=== PATIENT | female | born 1985 | race American Indian/Alaskan Native ===

== ENCOUNTER 2022-01-26 06:40 | Emergency (ER) | payer SELFPAY ==
--- NOTE | 2022-01-26 07:48 | Emergency Department Report ---
HPI - General Chief Complaint: Overdose Time Seen by Provider: 01/26/22 07:28 - HPI HPI: Room 18 The patient is a 36-year-old female present with chief complaint of altered mental status. Significant other states he attempted to wake the patient up th is morning in bed at 05: 00 but she was unresponsive. EMS was called. EMS administered Narcan 1 mg with some improvement of patient. Patient awakens to state that she has abdominal pain. Patient denies taking any opiates but states she took Ambien last night. Family states the patient complained of body aches last night. ED Past Medical Hx - Past Medical History Previous Medical History?: Yes Hx Hypertension: Yes Hx Kidney Stones: Yes - Surgical History Past Surgical History?: No Additional Surgical History: Ovarian cyst removal - Family History Family history: no significant - Social History Smoking Status: Never Smoker Substance Use Type: None ED Review of Systems ROS: Stated complaint: POSS OD Other details as noted in HPI Constitutional: no symptoms reported Eyes: denies: eye pain ENT: denies: throat pain Respiratory: no symptoms reported Cardiovascular: denies: chest pain Endocrine: no symptoms reported Gastrointestinal: abdominal pain. denies: nausea Genitourinary: denies: dysuria Musculoskeletal: myalgia Neurological: denies: headache Physical Exam - Physical Exam Vital Signs: Vital Signs 01/26/22 06:40 Temperature 97.5 F L Pulse Rate 96 H Respiratory 18 Rate Blood Pressure 142/91 O2 Sat by Pulse 98 Oximetry Physical Exam: GENERAL: The patient is well-developed well-nourished female lying on stretcher only responding to tactile stimuli. [] HEENT: Normocephalic. Atraumatic. Extraocular motions are intact. Patient has moist mucous membranes. Pupils 3 to 2 mm bilaterally NECK: Supple. Trachea midline CHEST/LUNGS: Clear to auscultation. There is no respiratory distress noted. HEART/CARDIOVASCULAR: Regular. There is no tachycardia. There is no gallop rub or murmur. ABDOMEN: Abdomen is soft, nontender. Patient has normal bowel sounds. There is no abdominal distention. SKIN: There is no rash. There is no edema. There is no diaphoresis. NEURO: The patient is lethargic only responding to verbal and tactile stimuli. The patient is not cooperative with neurologic exam. The patient has normal speech MUSCULOSKELETAL: There is no evidence of acute injury. ED Course Vital Signs 01/26/22 06:40 Temperature 97.5 F L Pulse Rate 96 H Respiratory 18 Rate Blood Pressure 142/91 O2 Sat by Pulse 98 Oximetry - Reevaluation(s) Reevaluation #1: 01/26/22 13:20 Patient much more alert at this time. Patient states she only took 1 Ambien but does not recall the dosage. Patient denies any other coingestants. Patient currently denies complaints ED Medical Decision Making - Lab Data Result diagrams: 01/26/22 07:47 01/26/22 07:47 Laboratory Tests 01/26/22 01/26/22 01/26/22 07:47 07:47 07:47 WBC 7.4 RBC 4.29 Hgb 12.6 Hct 38.3 MCV 89 MCH 29 MCHC 33 RDW 14.7 Plt Count 285 Lymph % (Auto) 19.1 [place] % (Auto) 6.2 Eos % (Auto) 1.1 Baso % (Auto) 0.5 Lymph # (Auto) 1.4 [place] # (Auto) 0.5 Eos # (Auto) 0.1 Baso # (Auto) 0.0 Seg Neutrophils % 73.1 H Seg Neutrophils # 5.4 Sodium 139 Potassium 3.9 Chloride 104.7 Carbon Dioxide 26 Anion Gap 12 BUN 10 Creatinine 0.7 Estimated GFR > 60 BUN/Creatinine Ratio 14 Glucose 99 Calcium 8.9 Total Bilirubin < 0.20 AST 28 ALT 21 Alkaline Phosphatase 58 Ammonia 12.0 L Total Creatine Kinase 109 Total Protein 6.5 Albumin 4.1 Albumin/Globulin Ratio 1.7 TSH Free T4 HCG, Qual Urine Color Urine Turbidity Urine pH Ur Specific [place] Urine Protein Urine Glucose (UA) Urine Ketones Urine Blood Urine Nitrite Urine Bilirubin Urine Urobilinogen Ur Leukocyte Esterase Urine WBC (Auto) Urine RBC (Auto) Salicylates Urine Opiates Screen Urine Methadone Screen Acetaminophen Ur Barbiturates Screen Ur Phencyclidine Scrn Ur Amphetamines Screen U Benzodiazepines Scrn Urine Cocaine Screen U Marijuana (THC) Screen Drugs of Abuse Note Plasma/Serum Alcohol 01/26/22 01/26/22 01/26/22 07:47 07:47 07:47 WBC RBC Hgb Hct MCV MCH MCHC RDW Plt Count Lymph % (Auto) [place] % (Auto) Eos % (Auto) Baso % (Auto) Lymph # (Auto) [place] # (Auto) Eos # (Auto) Baso # (Auto) Seg Neutrophils % Seg Neutrophils # Sodium Potassium Chloride Carbon Dioxide Anion Gap BUN Creatinine Estimated GFR BUN/Creatinine Ratio Glucose Calcium Total Bilirubin AST ALT Alkaline Phosphatase Ammonia Total Creatine Kinase Total Protein Albumin Albumin/Globulin Ratio TSH 1.510 Free T4 1.09 HCG, Qual Negative Urine Color Urine Turbidity Urine pH Ur Specific [place] Urine Protein Urine Glucose (UA) Urine Ketones Urine Blood Urine Nitrite Urine Bilirubin Urine Urobilinogen Ur Leukocyte Esterase Urine WBC (Auto) Urine RBC (Auto) Salicylates Urine Opiates Screen Urine Methadone Screen Acetaminophen Ur Barbiturates Screen Ur Phencyclidine Scrn Ur Amphetamines Screen U Benzodiazepines Scrn Urine Cocaine Screen U Marijuana (THC) Screen Drugs of Abuse Note Plasma/Serum Alcohol < 0.01 01/26/22 01/26/22 01/26/22 08:00 08:00 11:14 WBC RBC Hgb Hct MCV MCH MCHC RDW Plt Count Lymph % (Auto) [place] % (Auto) Eos % (Auto) Baso % (Auto) Lymph # (Auto) [place] # (Auto) Eos # (Auto) Baso # (Auto) Seg Neutrophils % Seg Neutrophils # Sodium Potassium Chloride Carbon Dioxide Anion Gap BUN Creatinine Estimated GFR BUN/Creatinine Ratio Glucose Calcium Total Bilirubin AST ALT Alkaline Phosphatase Ammonia Total Creatine Kinase Total Protein Albumin Albumin/Globulin Ratio TSH Free T4 HCG, Qual Urine Color Straw Urine Turbidity Clear Urine pH 6.0 Ur Specific [place] 1.019 Urine Protein <15 mg/dl Urine Glucose (UA) Neg Urine Ketones Neg Urine Blood Neg Urine Nitrite Neg Urine Bilirubin Neg Urine Urobilinogen < 2.0 Ur Leukocyte Esterase Neg Urine WBC (Auto) < 1.0 Urine RBC (Auto) 1.0 Salicylates < 0.3 L Urine Opiates Screen Urine Methadone Screen Acetaminophen 5.0 L Ur Barbiturates Screen Ur Phencyclidine Scrn Ur Amphetamines Screen U Benzodiazepines Scrn Urine Cocaine Screen U Marijuana (THC) Screen Drugs of Abuse Note Plasma/Serum Alcohol 01/26/22 11:14 WBC RBC Hgb Hct MCV MCH MCHC RDW Plt Count Lymph % (Auto) [place] % (Auto) Eos % (Auto) Baso % (Auto) Lymph # (Auto) [place] # (Auto) Eos # (Auto) Baso # (Auto) Seg Neutrophils % Seg Neutrophils # Sodium Potassium Chloride Carbon Dioxide Anion Gap BUN Creatinine Estimated GFR BUN/Creatinine Ratio Glucose Calcium Total Bilirubin AST ALT Alkaline Phosphatase Ammonia Total Creatine Kinase Total Protein Albumin Albumin/Globulin Ratio TSH Free T4 HCG, Qual Urine Color Urine Turbidity Urine pH Ur Specific [place] Urine Protein Urine Glucose (UA) Urine Ketones Urine Blood Urine Nitrite Urine Bilirubin Urine Urobilinogen Ur Leukocyte Esterase Urine WBC (Auto) Urine RBC (Auto) Salicylates Urine Opiates Screen Negative Urine Methadone Screen Negative Acetaminophen Ur Barbiturates Screen Negative Ur Phencyclidine Scrn Negative Ur Amphetamines Screen Negative U Benzodiazepines Scrn Positive Urine Cocaine Screen Negative U Marijuana (THC) Screen Negative Drugs of Abuse Note Disclamer Plasma/Serum Alcohol - Radiology Data Radiology results: report reviewed (CT head, CT abdomen pelvis), image reviewed (CT head, CT abdomen pelvis) [facility] [address] [id number] Cat Scan Report Signed Patient: RASHAD LARSEN MR#: [id number] : 1985 Acct:[id number] Age/Sex: 36 / F ADM Date: 01/26/22 Loc: ED Attending Dr: Ordering Physician: ALBERT DREW MD Date of Service: 01/26/22 Procedure(s): CT abdomen pelvis w con Accession Number(s): [id number] cc: ALBERT DREW MD CT ABDOMEN AND PELVIS WITH CONTRAST HISTORY: Lower abdominal pain. COMPARISON: None. TECHNIQUE: CT images of the abdomen and pelvis were obtained following administration of intravenous contrast. All CT scans at this location are performed using CT dose reduction for ALARA by means of automated exposure control. CONTRAST: 100 ml of intravenous contrast administered. FINDINGS: Lungs/bones: Mild increased interstitial prominence in the lower lungs. Nodula r opacities identified with nodules measuring up to 7 mm Abdomen/pelvis: A few hypodensities are seen in the liver too small to characterize. Spleen, adrenal glands, pancreas and gallbladder appear normal. There is constipation throughout the colon. Evaluation for inflammatory change is limited with only small amount of intra- abdominal fat. Appendix is not well seen. The urinary bladder is distended. Visualized portions of aorta appear normal. Kidneys are unremarkable. No free fluid is identified. Splenule is seen. No acute bone findings are seen. IMPRESSION: 1. Constipation. The appendix is not visualized. No free fluid in the abdomen or pelvis. 2. A few hypodensities are seen within the liver which could represent cyst however too small to characterize. 3. Bladder is distended and 4. Nodular densities in the lower lungs with nodules measuring up to 7 mm. Follow-up for pulmonary nodule with CT chest recommended. Signer Name: Jb Keys MD Signed: 01/26/2022 9:47 AM Workstation Name: [id number] Transcribed By: CW Dictated By: JEREMY KEYS MD Electronically Authenticated By: JEREMY KEYS MD Signed Date/Time: 01/26/22946 DD/ 3 TD/TT: CT HEAD WITHOUT CONTRAST INDICATION / CLINICAL INFORMATION: Altered mental status. TECHNIQUE: All CT scans at this location are performed using CT dose reduction for ALARA by means of automated exposure control. COMPARISON: None available. FINDINGS: No acute intracranial hemorrhage. Ventricles are normal in size without midline shift or mass effect. No extra-axial fluid collection is seen sinuses are clear nice-white matter differentiation appears normal. Orbits appear normal. Visualized portions of the nice cervical junction appears normal ADDITIONAL FINDINGS: None. IMPRESSION: 1. No acute intracranial abnormality. Signer Name: Jb Keys MD Signed: 01/26/2022 8:35 AM Workstation Name: [id number] - Differential Diagnosis Medication reaction, overdose, Critical care attestation.: If time is entered above; I have spent that time in minutes in the direct care of this critically ill patient, excluding procedure time. ED Disposition Clinical Impression: Medication adverse effect Disposition: 01 HOME / SELF CARE / HOMELESS Is pt being admited?: No Does the pt Need Aspirin: No Condition: Stable Additional Instructions: Return to the emergency department should you develop worsening symptoms, inability to tolerate food or liquids, high fever or any other concerns Referrals: SUZANNE LUJAN MD [Staff Physician] - 3-5 Days Time of Disposition: 13:38
[2022-01-26 08:25] LABS: Basophils % (Auto) 0.5 % (0.0-1.8); Eosinophils # (Auto) 0.1 K/mm3 (0.0-0.4); Eosinophils % (Auto) 1.1 % (0.0-4.3); Hematocrit 38.3 % (30.3-42.9); Hemoglobin 12.6 gm/dl (10.1-14.3); Lymphocytes # (Auto) 1.4 K/mm3 (1.2-5.4); Lymphocytes % (Auto) 19.1 % (13.4-35.0); Mean Corpuscular HGB Conc 33 % (30-34); Mean Corpuscular Volume 89 fl (79-97); Monocytes # (Auto) 0.5 K/mm3 (0.0-0.8); Monocytes % (Auto) 6.2 % (0.0-7.3); Platelet Count 285 K/mm3 (140-440); Red Blood Count 4.29 M/mm3 (3.65-5.03); Red Cell Distribution Width 14.7 % (13.2-15.2)
[2022-01-26 08:48] LABS: Alanine Aminotransferase 21 units/L (7-56); Albumin 4.1 g/dL (3.9-5); Blood Urea Nitrogen 10 mg/dL (7-17); Calcium 8.9 mg/dL (8.4-10.2); Hemolysis Index 7
[2022-01-26 08:55] LABS: BUN/Creatinine Ratio 14
[2022-01-26 09:00] LABS: Free T4 (Free Thyroxine) 1.09 ng/dL (0.76-1.46)
--- NOTE | 2022-01-26 09:51 | Cat Scan Report ---
CT ABDOMEN AND PELVIS WITH CONTRAST HISTORY: Lower abdominal pain. COMPARISON: None. TECHNIQUE: CT images of the abdomen and pelvis were obtained following administration of intravenous contrast. All CT scans at this location are performed using CT dose reduction for ALARA by means of automated exposure control. CONTRAST: 100 ml of intravenous contrast administered. FINDINGS: Lungs/bones: Mild increased interstitial prominence in the lower lungs. Nodular opacities identified with nodules measuring up to 7 mm Abdomen/pelvis: A few hypodensities are seen in the liver too small to characterize. Spleen, adrenal glands, pancreas and gallbladder appear normal. There is constipation throughout the colon. Evaluati on for inflammatory change is limited with only small amount of intra-abdominal fat. Appendix is not well seen. The urinary bladder is distended. Visualized portions of aorta appear normal. Kidneys are unremarkable. No free fluid is identified. Splenule is seen. No acute bone findings are seen. IMPRESSION: 1. Constipation. The appendix is not visualized. No free fluid in the abdomen or pelvis. 2. A few hypodensities are seen within the liver which could represent cyst however too small to ren acterize. 3. Bladder is distended and 4. Nodular densities in the lower lungs with nodules measuring up to 7 mm . Follow-up for pulmonary nodule with CT chest recommended. Signer Name: Jb Keys MD Signed: 01/26/2022 9:47 AM Workstation Name: [id number]
[2022-01-26 11:43] LABS: Bilirubin,Urine NEG (Negative); Blood,Urine NEG (Negative); Color,Urine Straw (Yellow); Protein,Urine <15 mg/dL mg/dL (Negative); Urobilinogen,Urine < 2.0 mg/dL (<2.0)
[2022-01-26 11:45] LABS: WBC,Urine < 1.0 /HPF (0.0-6.0)
[2022-01-26 12:22] LABS: Amphetamine Screen,Urine Negative; Cannabinoid Screen,Urine Negative; Cocaine Screen,Urine Negative; Methadone Screen,Urine Negative; Opiate Screen,Urine Negative
[2022-01-26 12:38] LABS: Benzodiazepines Screen,Urine Positive
[2022-01-26 15:16] VITALS: BP 146/97
--- NOTE | 2022-01-27 09:23 | Cat Scan Report ---
CT HEAD WITHOUT CONTRAST INDICATION / CLINICAL INFORMATION: Altered mental status. TECHNIQUE: All CT scans at this location are performed using CT dose reduction for ALARA by means of automated e xposure control. COMPARISON: None available. FINDINGS: No acute intracranial hemorrhage. Ventricles are normal in size without midline shift or mass effect. No extra-axial fluid collection is seen sinuses are clear nice-white matter differentiation appears normal. Orbits appear normal. Visualized portions of the nice cervical junction appears normal ADDITIONAL FINDINGS: None. IMPRESSION: 1. No acute intracranial abnormality. Signer Name: Jb Keys MD Signed: 01/26/2022 9:35 AM Workstation Name: [id number]
== END 2022-01-26 15:25 | disposition home or self-care (01) ==
LOC: ED 06:40
DX: T50.995A Adverse effect of other drugs, medicaments and biological substances, initial encounter (principal); I10 Essential (primary) hypertension; Z87.442 Personal history of urinary calculi; Z98.890 Other specified postprocedural states; Y92.89 Other specified places as the place of occurrence of the external cause
CPT/HCPCS: 36415; 70450; 74177; 80053; 80307; 81001; 82140; 82550; 84439; 84443; 84703; 85025; 99284; Q9967; 80320; G0480